=== PATIENT | male | born 1955 | race Caucasian/White ===

== ENCOUNTER 2017-07-13 04:26 | Emergency (ER) | payer SELFPAY ==
[2017-07-13] MEDS ORDERED: Acetaminophen/HYDROcodone 325-7.5 MG Tab PO ONE (04:55)
--- NOTE | 2017-07-13 05:00 | EDM.PDOC ---
ED HPI GENERAL MEDICAL PROBLEM - General Chief Complaint: Upper Extremity Injury/Pain Stated Complaint: RIGHT WRIST PAIN Time Seen by Provider: 07/13/17 04:50 - History of Present Illness INITIAL COMMENTS - FREE TEXT/NARRATIVE: HISTORY AND PHYSICAL: History of present illness: The patient is a 61-year-old male who presents with complaints of pain at his right dorsal wrist that started almost 2 days ago while he was at work lifting heavy containers of water and he twisted the area. He states nothing directly fell in the area but there was a twisting action and initially he had some pain but it seemed to go away so he continued working. The pain worsened yesterday so he did not go to work and is been taking [id number] ibuprofen and trying to ice it. Patient says the pain is swelling has gotten worse and he has no neurosensory changes in the hand and he has no proximal forearm elbow or shoulder pain. The patient is right-hand dominant. He has no other systemic complaints or injuries Review of systems: As per history of present illness and below otherwise all systems reviewed and negative. Past medical history: As per history of present illness and as reviewed below otherwise noncontributory. Surgical history: As per history of present illness and as reviewed below otherwise noncontributory. Social history: No reported history of drug or alcohol abuse. Family history: As per history of present illness and as reviewed below otherwise noncontributory. Physical exam: Gen.: Well-developed well-nourished man who is nontoxic and vital signs were noted by me. HEENT: Atraumatic, normocephalic, negative for conjunctival pallor or scleral icterus, mucous membranes moist, throat clear, neck supple, nontender, trachea midline. Lungs: Clear to auscultation, breath sounds equal bilaterally, chest nontender. Heart: S1S2, regula rate and rhythm no overt murmurs Abdomen: Soft, nondistended, nontender. NABS Pelvis: Deferred Genitourinary: Deferred. Rectal: Deferred. Extremities: Atraumatic with full range of motion of all extremities with the exception of the right wrist. At the dorsal aspect of the right wrist and hand there is diffuse soft tissue swelling but there is no palpable deformities or tenderness in the hand or fingers and the patient is able to range of motion at the hand and fingers. On palpation of the dorsal aspect of the wrist there is diffuse tenderness more at the radial aspect than the ulnar aspect. The soft tissue swelling is circumferential around the wrist. The proximal forearm elbow humerus and shoulder are without defects deformities or tenderness. Pulses are intact. The legs are, negative for cords or calf pain. Neurovascular unremarkable. Neuro: Awake, alert, oriented. Cranial nerves II through XII unremarkable. Cerebellum unremarkable. Motor and sensory unremarkable throughout. Exam nonfocal. Diagnostics: X-ray right wrist Therapeutics: Wingate Velcro wrist splint and sling Impression: Right wrist injury subacute/acute wrist sprain Definitive disposition and diagnosis as appropriate pending reevaluation and review of above. Treatments LAST SAWYER: Reports: Cold Therapy, NSAIDS Right Wrist Pain Score (Numeric/FACES): 8 - Related Data Allergies Allergy/AdvReac Type Severity Reaction Status Date / Time No Known Allergies Allergy Verified 07/13/17 04:54 Home Meds: Home Meds Ibuprofen [Motrin] 800 mg PO DAILY 07/13/17 [History] Melatonin 20 mg PO DAILY 07/13/17 [History] diphenhydrAMINE HCl [Sleep Aid] 25 mg PO BEDTIME PRN 07/13/17 [History] Past Medical History - Past Health History Medical/Surgical History: Denies Medical/Surgical History Social & Family History - Tobacco Use Smoking Status *Q: Current Every Day Smoker Years of Tobacco use: 20 Second Hand Smoke Exposure: No - Alcohol Use Days Per Week of Alcohol Use: 0 - Recreational Drug Use Recreational Drug Use: No Review of Systems - Review of Systems Review Of Systems: ROS reveals no pertinent complaints other than HPI. ED EXAM, GENERAL - Physical Exam Exam: See Below (See dictation) Course - Vital Signs Last Recorded V/S: Last Vital Signs Temp 36.6 C 07/13/17 04:49 Pulse 95 07/13/17 04:49 Resp 12 07/13/17 04:49 BP 116/77 07/13/17 04:49 Pulse Ox 94 L 07/13/17 04:49 - Orders/Labs/Meds Orders: Active Orders 24 hr Category Date Time Status Wrist Comp Min 3V Rt [CR] Stat Exams 07/13/17 04:55 Taken DME for Discharge [COMM] Stat Oth 07/13/17 06:05 Ordered Meds: Medications Discontinued Medications Generic Name Dose Route Start Last Admin Trade Name Freq PRN Reason Stop Dose Admin Hydrocodone Bitart/Acetaminophen 1 tab 03/12/18 04:55 Wingate 325-7.5 Mg PO 07/13/17 04:56 ONETIME ONE Departure - Departure Time of Disposition: 06:05 Disposition: Home, Self-Care 01 Condition: Good Clinical Impression: Right wrist injury Qualifiers: Encounter type: initial encounter Qualified Code(s): S69.91XA - Unspecified injury of right wrist, hand and finger(s), initial encounter - Discharge Information Referrals: PCP,None [Primary Care Provider] - Forms: ED Department Discharge Additional Instructions: The following information is given to patients seen in the emergency department who are being discharged to home. This information is to outline your options for follow-up care. We provide all patients seen in our emergency department with a follow-up referral. The need for follow-up, as well as the timing and circumstances, are variable depending upon the specifics of your emergency department visit. If you don't have a primary care physician on staff, we will provide you with a referral. We always advise you to contact your personal physician following an emergency department visit to inform them of the circumstance of the visit and for follow-up with them and/or the need for any referrals to a consulting specialist. The emergency department will also refer you to a specialist when appropriate. This referral assures that you have the opportunity for followup care with a specialist. All of these measure are taken in an effort to provide you with optimal care, which includes your followup. Under all circumstances we always encourage you to contact your private physician who remains a resource for coordinating your care. When calling for followup care, please make the office aware that this follow-up is from your recent emergency room visit. If for any reason you are refused follow-up, please contact the [facility] emergency department at and ask to speak to the emergency department charge nurse. [facility]--Orthopedic clinic Professional Building [address] [place] [id number] Ice and elevate the area as much as possible to reduce the swelling and inflammation. He is Velcro wrist splint at all times when you're out and about and wear sling to keep the hand up and reduce the swelling. Please remove the wrist splint at sleep. Please call and follow-up in our orthopedics clinic is increasing resources given to above. The clinic opens at 8 AM call for an appointment then. Return to ER as needed and as discussed. Continue to use over- the-counter ibuprofen/Motrin as well as pain medications prescribed via [facility], Tylenol with Codeine, but please only take the stronger pain meds when you 're at home. - My Orders Last 24 Hours: My Active Orders 07/13/17 04:55 Wrist Comp Min 3V Rt [CR] Stat 07/13/17 06:05 DME for Discharge [COMM] Stat - Assessment/Plan Last 24 Hours: My Active Orders 07/13/17 04:55 Wrist Comp Min 3V Rt [CR] Stat 07/13/17 06:05 DME for Discharge [COMM] Stat
[2017-07-13 06:13] VITALS: BP 136/74
--- NOTE | 2017-07-13 17:04 | CR ---
EXAM DATE: 07/13/17 PATIENT'S AGE: 61 Patient: VINCENZO GUERRIER Facility: [place], [place] Site . Site : 1955 Study: XRay Extremity Right [id number]/12/2018 5:27:06 AM Ordering Physician: Kusum Saenz Final Report: INDICATION: injury 2 days ago TECHNIQUE: Three views of the right wrist COMPARISON: None FINDINGS: Bones: No fractures or bone lesions. Joint spaces: Unremarkable. Soft tissues: Unremarkable. IMPRESSION: No acute bony abnormality. Dictated by Felice Price MD @ 07/13/2017 6:01:08 AM Dictated by: Felice Price MD @ 07/13/2017 06:01:35 (Electronic Signature) Report Signed by Proxy. [facility]
== END 2017-07-13 06:13 | disposition home or self-care (01) ==
LOC: MW.ED 04:26
DX: S63.501A Unspecified sprain of right wrist, initial encounter (principal); F17.200 Nicotine dependence, unspecified, uncomplicated; Z79.1 Long term (current) use of non-steroidal anti-inflammatories (NSAID); Z79.899 Other long term (current) drug therapy; X50.1XXA Overexertion from prolonged static or awkward postures, initial encounter; X50.0XXA Overexertion from strenuous movement or load, initial encounter; Y92.89 Other specified places as the place of occurrence of the external cause; Y99.0 Civilian activity done for income or pay
CPT/HCPCS: 73110; 99283; A4566; L3807